=== PATIENT | male | born 1940 | race Caucasian/White ===

== ENCOUNTER 2017-01-15 10:39 | Inpatient (IN) | payer OTHER, BC ==
[~2017-01-15] VITALS: Ht 175.3 cm; Wt 98.0 kg
[2017-01-15 10:58] LABS: POINT-OF-CARE METER ID UU13113778
[2017-01-15 11:33] LABS: EOSINOPHIL (%) 5.6 % (0-5); EOSINOPHIL COUNT 0.3 K/uL (0-0.3); HEMATOCRIT 37.7 % (38.0-50.0); IMMATURE GRANULOCYTE (%) 0.6 % (0.0-0.7); INSTRUMENT ABS NEUTROPHIL CT 2.7 K/uL; LYMPHOCYTE COUNT 1.4 K/uL (1.0-2.8); MCH 31.4 PG (29.0-34.0); MCHC 33.7 G/DL (30.0-36.0); MCV 93.1 FL (86-99); MONOCYTE (%) 11.2 % (3-12); MONOCYTE COUNT 0.6 K/uL (0-0.8); NEUTROPHIL (%) 53.3 % (45-76); NEUTROPHIL COUNT 2.7 K/uL (1.8-6.4); PLATELET COUNT 220 K/uL (156-360); RBC DIS.WIDTH-SD 44.2 % (39-53); RED BLOOD COUNT 4.05 M/uL (4.00-5.50)
[2017-01-15 11:46] LABS: CHLORIDE 109 mEq/L (99-109); POTASSIUM 4.3 mEq/L (3.7-5.4); SODIUM 139 mEq/L (136-147)
[2017-01-15 11:49] LABS: GLUCOSE 116 mg/dL (70-99)
[2017-01-15 11:50] LABS: ANION GAP 7 MEQ/L (2-14); TOTAL BILIRUBIN 0.4 mg/dL (0.0-1.0)
[2017-01-15 11:52] LABS: ALKALINE PHOSPHATASE 25 IU/L (3-129); GFR ESTIMATE (CALCULATED) 57 mL/min/
[2017-01-15 11:53] LABS: TROP-I INTERPRETATION NEGATIVE; TROPONIN-I < 0.01 ng/mL (0.0-0.30); UREA NITROGEN (BUN) 28 mg/dL (9-23)
[2017-01-15 12:05] LABS: ADD MIUA? NO; BILIRUBIN NEGATIVE; BLOOD NEGATIVE; COLOR YELLOW ((YELLOW)); GLUCOSE (STRIP) NEGATIVE; KETONES NEGATIVE; LEUKOCYTES NEGATIVE; NITRITE NEGATIVE; PROTEIN (STRIP) NEGATIVE; SPECIFIC GRAVITY 1.013 (1.000-1.030); UCUL ADDED? NO; UROBILINOGEN 0.2 MG/DL (0.2-1.0)
[2017-01-15 12:31] LABS: HDL CHOLESTEROL 31 MG/DL (Desirable>=40); LDL CHOLESTEROL 86 mg/dL (Desirable<100); NON-HDL CHOLESTEROL 123 mg/dL (Desirable<160); TOTAL CHOLESTEROL 154 mg/dL (Desirable<200); TRIGLYCERIDES 184 MG/DL (Normal: <150)
[2017-01-15] MEDS ORDERED: FLOMAX0.4 MG PO (12:32)
[2017-01-15] MEDS ORDERED: TENORMIN50 MG PO (12:33)
[2017-01-15] MEDS ORDERED: ZOCOR20 MG PO (12:34)
[2017-01-15] MEDS ORDERED: COZAAR25 MG PO (12:34)
[2017-01-15] MEDS ORDERED: FENOFIBRATE134 M1 PO (12:34)
[2017-01-15] MEDS ORDERED: CALTRATE PLUS1 EACH PO (12:35)
[2017-01-15] MEDS ORDERED: ALEVE220 M2 PO (12:35)
[2017-01-15] MEDS ORDERED: GLIMEPIRIDE PO (12:37)
[2017-01-15 13:40] LABS: EOSINOPHIL COUNT 0.3 K/uL (0-0.3); HEMATOCRIT 39.4 % (38.0-50.0); IMMATURE GRANULOCYTE (%) 0.4 % (0.0-0.7); LYMPHOCYTE COUNT 1.6 K/uL (1.0-2.8); MCH 30.5 PG (29.0-34.0); MCHC 32.5 G/DL (30.0-36.0); MCV 93.8 FL (86-99); MEAN PLAT.VOLUME 9.8 uM^3 (9.0-12.4); MONOCYTE (%) 10.3 % (3-12); MONOCYTE COUNT 0.6 K/uL (0-0.8); PLATELET COUNT 224 K/uL (156-360); RBC DIS.WIDTH-CV 13.1 % (11.8-14.6); RBC DIS.WIDTH-SD 44.9 % (39-53); WHITE BLOOD COUNT 5.5 K/uL (4.1-10.2)
[2017-01-15 13:49] LABS: CHLORIDE 109 mEq/L (99-109); POTASSIUM 4.7 mEq/L (3.7-5.4); SODIUM 140 mEq/L (136-147)
[2017-01-15 13:50] LABS: GLUCOSE 94 mg/dL (70-99)
[2017-01-15 13:52] LABS: ANION GAP 7 MEQ/L (2-14)
[2017-01-15 13:54] LABS: GFR ESTIMATE (CALCULATED) 57 mL/min/
[2017-01-15 13:55] LABS: UREA NITROGEN (BUN) 27 mg/dL (9-23)
[2017-01-15 13:58] LABS: INTER. NORMALIZED RATIO 1.1; PROTHROMBIN TIME 11.1 (9.2-11.2); PTT 27.5 (25-32)
[2017-01-15 14:32] VITALS: BP 195/84
[2017-01-15 20:00] VITALS: BP 158/74
[2017-01-16 04:00] VITALS: BP 119/58
[2017-01-16 07:48] LABS: Estimated Average Glucose 126 mg/dL (70-123)
[2017-01-16 08:35] VITALS: BP 140/61
[2017-01-16 12:15] VITALS: BP 120/58
[2017-01-16 16:10] VITALS: BP 140/70
[2017-01-16 19:00] VITALS: BP 148/72
[2017-01-17] VITALS: BP 134/81
[2017-01-17 04:03] VITALS: BP 101/55
[2017-01-17 08:18] VITALS: BP 122/64
[2017-01-17 11:18] VITALS: BP 124/69
[2017-01-17] MEDS ORDERED: ASPIR-LOW81 MG PO (11:24)
== END 2017-01-17 14:18 | disposition home or self-care (01) | DRG 66 ==
LOC: EME 10:39 → 5WEST 12:59 → EDOF 12:59 → 5WEST 13:54
PROVIDERS: Emergency Medicine; Internal Medicine
DX: I63.9 Cerebral infarction, unspecified (principal); E78.5 Hyperlipidemia, unspecified; R73.03 Prediabetes; I10 Essential (primary) hypertension; Z86.718 Personal history of other venous thrombosis and embolism; N40.0 Benign prostatic hyperplasia without lower urinary tract symptoms; M79.89 Other specified soft tissue disorders; H53.2 Diplopia
CPT/HCPCS: 70450; 70551; 71020; 80048 91; 80053; 80061; 81003; 82948; 83036; 84484; 85025; 85025 91; 85610; 85730; 93005; 93306; 93880; 93971; 99281; 99284; G0378; J1650